=== PATIENT | female | born 1965 | race African-American/Black ===

== ENCOUNTER 2022-06-26 19:51 | Inpatient (IN) | payer OTHER ==
[~2022-06-26] VITALS: Ht 182.9 cm; Wt 104.8 kg
[~2022-06-26 19:51] MED LIST: TRIA1CAP35
[2022-06-26 20:50] LABS: BASOPHILS % 0.3 % (0.0-2.0); EOSINOPHILS % 0.3 % (0.0-5.0); HEMATOCRIT. 46.8 % (36.0-48.0); HEMOGLOBIN. 16.1 g/dL (12.0-16.0); LYMPHOCYTES % 7.9 % (20.0-50.0); MEAN CORPUSCULAR HEMOGLOBIN 29.8 pg (28.0-32.0); MEAN CORPUSCULAR VOLUME 86.8 fL (81.0-99.0); MEAN PLATELET VOLUME 6.9 fl (7.4-10.4); NEUTROPHILS % 86.5 % (40.0-76.0); PLATELET 507 x1000/uL (130-400); RED CELL DISTRIBUTION WIDTH 13.5 % (11.6-14.6)
[2022-06-26 21:05] LABS: CHLORIDE 98 mEq/L (98-107)
[2022-06-26 21:12] LABS: ETHANOL BLOOD < 10 mg/dL
[2022-06-26] MEDS ORDERED: CEFEPIME 1,000 MG in DEXTROSE 5% WATER 50 ML IV NR (22:00)
[2022-06-26] MEDS ORDERED: VANCOMYCIN 1G PREMIX 200 ML IV NR (22:00)
[2022-06-26] MEDS: DEXT 5%/LACTATED RINGERS 1,000 ML IV SCH (22:15)
[2022-06-26] MEDS ORDERED: ROCURONIUM BROMIDE 10MG/ML VIAL 5ML IV ONE (22:15)
[2022-06-26] MEDS ORDERED: DEXAMETHASONE 10 MG/ML VIAL IV ONE (22:15)
[2022-06-26] MEDS ORDERED: LEVETIRACETAM 500MG PREMIX 100 ML IV ONE ×2 (22:15)
[2022-06-26] MEDS ORDERED: NICARDIPINE 100 MG in SODIUM CHLORIDE 0.9% 60 ML IV PRN (22:15)
[2022-06-26] MEDS ORDERED: MANNITOL 12.5G (25%) VIAL 50ML IV ONE (22:15)
[2022-06-26] MEDS ORDERED: ETOMIDATE 2MG/ML 10ML VIAL IV ONE (22:15)
[2022-06-26] MEDS ORDERED: FENTANYL 2500MCG/250ML PMX 250 ML IV ONE (22:30)
[2022-06-26] MEDS ORDERED: MIDAZOLAM HCL 100 MG in DEXT 5% WATER 80 ML IV ONE (22:30)
[2022-06-26] MEDS ORDERED: FENTANYL 2500MCG/250ML PMX 250 ML IV NR (22:45)
[2022-06-26] MEDS ORDERED: MIDAZOLAM HCL 100 MG in DEXT 5% WATER 80 ML IV NR (22:45)
[2022-06-26 23:19] LABS: CREATINE KINASE 657 IU/L (26-192)
[2022-06-27] VITALS (57 sets, daily range): BP systolic 90–140; BP diastolic 53–103
[2022-06-27] LABS: BG BASE EXCESS -0.8 mmol/L (-2.0-2.0); BG CARBOXYHEMOGLOBIN 0.5 % (0.5-1.5); BG DEOXYHEMOGLOBIN 0.3 % (0.0-5.0); BG FRACTION INSPIRED OXYGEN 100; BG HCO3 ACT 22.3 mmol/L (22.0-26.0); BG METHEMOGLOBIN 0.5 % (0.0-1.5); BG OXYGEN SATURATION 99.7 % (92.0-98.5); BG OXYHEMOGLOBIN 98.7 % (94.0-97.0); BG PCO2 33.1 mmHg (35.0-45.0); BG PH 7.446 (7.350-7.450); BG PO2 504.7 mmHg (75.0-100.0); BG SAMPLE SITE LEFT RADIAL; BG TOTAL HEMOGLOBIN 16.8 g/dL (12.0-18.0); BG VENT MODE VENT - AC
[2022-06-27] MEDS ORDERED: LEVETIRACETAM 500MG PREMIX 100 ML IV NR (02:15)
[2022-06-27 03:05] LABS: CLARITY URINE CLEAR (CLEAR); COLOR URINE YELLOW (YELLOW); KETONES URINE NEGATIVE (NEGATIVE); LEUKOCYTE ESTERASE URINE NEGATIVE (NEGATIVE); NITRITE URINE NEGATIVE (NEGATIVE); OCCULT BLOOD URINE 3+ (NEGATIVE); PROTEIN URINE 4+ (NEGATIVE); SPECIFIC GRAVITY URINE 1.026 (1.005-1.030); UROBILINOGEN URINE 0.2 E.U./dL (0.2-1.0)
[2022-06-27] MEDS: DEXT 5%/LACTATED RINGERS 1,000 ML IV SCH (03:13)
[2022-06-27 03:22] LABS: *AMPHETAMINES SCREEN URINE NEGATIVE (NEGATIVE); *BARBITURATES SCREEN URINE NEGATIVE (NEGATIVE); *BENZODIAZEPINES SCREEN URINE NEGATIVE (NEGATIVE); *COCAINE SCREEN URINE NEGATIVE (NEGATIVE); CANNABINOID URINE SCREEN PRESUMTIVE POSITIVE (NEGATIVE); METHADONE URINE SCREEN NEGATIVE (NEGATIVE); OPIATES URINE SCREEN NEGATIVE (NEGATIVE); PHENCYCLIDINE URINE SCREEN NEGATIVE (NEGATIVE)
[2022-06-27] MEDS ORDERED: IPRATROPIUM/ALBUTEROL 0.5-3(2.5)MG/3ML NEB NEB PRN (04:15)
[2022-06-27] MEDS ORDERED: ONDANSETRON HCL 4MG/2ML INJ IV PRN (04:15)
[2022-06-27] MEDS ORDERED: ACETAMINOPHEN 650MG SUPP PR PRN (04:15)
[2022-06-27] MEDS ORDERED: NA PHOS,M-B/NA PHOS,DI-BA ENEMA 118ML PR PRN (04:15)
[2022-06-27] MEDS ORDERED: DOCUSATE SODIUM 100MG CAPSULE PO PRN (04:15)
[2022-06-27] MEDS ORDERED: POTASSIUM CHLORIDE INJ 40 MEQ in DEXT 5% WATER 250 ML IV ONE (05:00)
[2022-06-27] MEDS: DEXAMETHASONE 4MG/ML 1ML VIAL IV SCH ×5 (07:09→23:31)
[2022-06-27] MEDS: KCL 10MEQ/50ML PREMIX 50 ML IV NR ×4 (07:09→10:07)
[2022-06-27] MEDS: PANTOPRAZOLE SODIUM 40 MG/VIAL IV SCH (07:09)
[2022-06-27] MEDS ORDERED: SODIUM CHLORIDE 0.9% 1,000 ML IV SCH (07:54)
[2022-06-27] MEDS: VANCOMYCIN 1.25GM PMX (XELLIA) 250 ML IV SCH ×2 (08:37→20:16)
[2022-06-27] MEDS ORDERED: LEVETIRACETAM 500MG PREMIX 100 ML IV SCH (09:00)
[2022-06-27] MEDS ORDERED: VANCOMYCIN 1G PREMIX 200 ML IV SCH (09:00)
[2022-06-27] MEDS ORDERED: ENOXAPARIN 30MG/0.3ML SYR SUBCUT SCH (09:00)
[2022-06-27] MEDS ORDERED: CEFEPIME HCL 1000MG/VIAL INJ IM SCH (09:00)
[2022-06-27] MEDS: LEVETIRACETAM 500MG PREMIX 100 ML IV SCH ×2 (10:07→20:05)
[2022-06-27] MEDS: CEFEPIME 1,000 MG in DEXTROSE 5% WATER 50 ML IV SCH ×2 (11:29→20:16)
[2022-06-27] MEDS ORDERED: KCL 20MEQ/100ML PREMIX 100 ML IV NR (11:30)
[2022-06-27] MEDS ORDERED: KCL 20MEQ/100ML X 2 FOR TOTAL KCL 40MEQ/200ML IV SCH (11:30)
[2022-06-27] MEDS ORDERED: FENTANYL 2500MCG/250ML PMX 250 ML IV PRN (13:00)
[2022-06-27] MEDS ORDERED: MIDAZOLAM HCL 100 MG in SODIUM CHLORIDE 0.9% 80 ML IV PRN (14:00)
[2022-06-27 17:19] LABS: HEMATOCRIT. 45.8 % (36.0-48.0); HEMOGLOBIN. 15.8 g/dL (12.0-16.0); MEAN CORPUSCULAR HEMOGLOBIN 30.6 pg (28.0-32.0); MEAN CORPUSCULAR VOLUME 88.4 fL (81.0-99.0); MEAN PLATELET VOLUME 7.8 fl (7.4-10.4); PLATELET 482 x1000/uL (130-400); RED BLOOD CELL COUNT 5.18 mill/uL (4.2-5.4); RED CELL DISTRIBUTION WIDTH 13.7 % (11.6-14.6)
[2022-06-27 18:14] LABS: CHLORIDE 104 mEq/L (98-107)
[2022-06-27 18:15] LABS: BG BASE EXCESS -2.4 mmol/L (-2.0-2.0); BG CARBOXYHEMOGLOBIN 0.5 % (0.5-1.5); BG DEOXYHEMOGLOBIN 1.3 % (0.0-5.0); BG FRACTION INSPIRED OXYGEN 40; BG HCO3 ACT 21.2 mmol/L (22.0-26.0); BG METHEMOGLOBIN 0.3 % (0.0-1.5); BG OXYGEN SATURATION 98.7 % (92.0-98.5); BG OXYHEMOGLOBIN 97.9 % (94.0-97.0); BG PCO2 33.7 mmHg (35.0-45.0); BG PH 7.416 (7.350-7.450); BG PO2 142.9 mmHg (75.0-100.0); BG SAMPLE SITE RIGHT RADIAL; BG TOTAL HEMOGLOBIN 16.7 g/dL (12.0-18.0); BG VENT MODE VENT - CPAP
[2022-06-27 18:15] LABS: PLATELET ESTIMATE INCREASED
[2022-06-27 18:29] LABS: CREATINE KINASE 726 IU/L (26-192); HDL CHOLESTEROL 40 mg/dL (40-59); LDL CHOLESTEROL 152 mg/dL (5-100); PHOSPHORUS 3.8 mg/dL (2.5-4.9)
[2022-06-27 19:58] LABS: FOLIC ACID (FOLATE) SERUM 12.5 ng/mL (>5.38)
[2022-06-28] VITALS (53 sets, daily range): BP systolic 92–151; BP diastolic 38–96
[2022-06-28] MEDS: DEXAMETHASONE 4MG/ML 1ML VIAL IV SCH ×4 (05:21→23:24)
[2022-06-28 06:10] LABS: HEMATOCRIT. 44.5 % (36.0-48.0); HEMOGLOBIN. 15.2 g/dL (12.0-16.0); MEAN CORPUSCULAR HEMOGLOBIN 30.4 pg (28.0-32.0); MEAN CORPUSCULAR VOLUME 89.1 fL (81.0-99.0); MEAN PLATELET VOLUME 7.5 fl (7.4-10.4); PLATELET 449 x1000/uL (130-400); RED BLOOD CELL COUNT 4.99 mill/uL (4.2-5.4); RED CELL DISTRIBUTION WIDTH 13.7 % (11.6-14.6)
[2022-06-28] MEDS: PANTOPRAZOLE SODIUM 40 MG/VIAL IV SCH (08:20)
[2022-06-28] MEDS: VANCOMYCIN 1.25GM PMX (XELLIA) 250 ML IV SCH ×2 (08:20→20:07)
[2022-06-28] MEDS: LEVETIRACETAM 500MG PREMIX 100 ML IV SCH ×2 (08:20→20:07)
[2022-06-28] MEDS: CEFEPIME 1,000 MG in DEXTROSE 5% WATER 50 ML IV SCH ×2 (08:20→20:07)
[2022-06-28 08:54] LABS: PLATELET ESTIMATE INCREASED
[2022-06-28 09:14] LABS: CHLORIDE 105 mEq/L (98-107)
[2022-06-29] VITALS (59 sets, daily range): BP systolic 98–153; BP diastolic 58–121
[2022-06-29 05:52] LABS: HEMATOCRIT 42.7 % (36.0-48.0); HEMOGLOBIN 14.8 g/dL (12.0-16.0); MEAN CORPUSCULAR HEMOGLOBIN 30.9 pg (28.0-32.0); PLATELET 421 x1000/uL (130-400); RED BLOOD CELL COUNT 4.79 mill/uL (4.2-5.4); RED CELL DISTRIBUTION WIDTH 13.3 % (11.6-14.6)
[2022-06-29 05:57] LABS: CHLORIDE 107 mEq/L (98-107)
[2022-06-29] MEDS ORDERED: THROMBIN (BOVINE) 5000 UNITS/VIAL TOP ONE (06:06)
[2022-06-29] MEDS ORDERED: LIDOCAINE HCL 1%/EPI 1:200,000 30 ML VIAL ONE (06:06)
[2022-06-29] MEDS ORDERED: GENTAMICIN SULF 40MG/ML 2ML VIAL ONE (06:07)
[2022-06-29] MEDS ORDERED: BACITRACIN 15GM TUBE TOP ONE (06:11)
[2022-06-29] MEDS: DEXAMETHASONE 4MG/ML 1ML VIAL IV SCH ×3 (06:20→17:02)
[2022-06-29] MEDS ORDERED: DEXAMETHASONE 4MG/ML 1ML VIAL ONE ×2 (06:56→07:38)
[2022-06-29] MEDS ORDERED: NEOSTIGMINE METHYLSULFATE 1MG/ML 10 ML VIAL ONE (06:56)
[2022-06-29] MEDS ORDERED: SUCCINYLCHOLINE CHLORIDE 200MG/10ML IV ONE (06:56)
[2022-06-29] MEDS ORDERED: ROCURONIUM BROMIDE 10MG/ML VIAL 5ML IV ONE ×2 (06:56→07:54)
[2022-06-29] MEDS ORDERED: ONDANSETRON HCL 4MG/2ML INJ ONE (06:56)
[2022-06-29] MEDS ORDERED: CEFAZOLIN SODIUM 1000MG/VIAL ONE (06:56)
[2022-06-29] MEDS ORDERED: GLYCOPYRROLATE 0.2 MG/ML 2ML VIAL ONE ×2 (06:57)
[2022-06-29] MEDS ORDERED: PROPOFOL 200MG/20ML VIAL IV ONE (06:57)
[2022-06-29] MEDS ORDERED: FENTANYL CITRATE/PF 50MCG/ML 2ML VIAL ONE (06:58)
[2022-06-29] MEDS ORDERED: MIDAZOLAM HCL 2 MG/2 ML VIAL ONE (06:58)
[2022-06-29] MEDS: CLONIDINE 0.1MG TABLET PO PRN (07:02)
[2022-06-29] MEDS ORDERED: FUROSEMIDE 40MG/4ML VIAL ONE (07:38)
[2022-06-29] MEDS ORDERED: MANNITOL 20% 500 ML IV ONE (07:38)
[2022-06-29] MEDS ORDERED: LEVETIRACETAM 500MG PREMIX 100 ML IV ONE (07:39)
[2022-06-29] MEDS ORDERED: PHENYTOIN SODIUM 250MG/5ML VIAL IV ONE (07:40)
[2022-06-29] MEDS ORDERED: HYDROMORPHONE HCL/PF 2MG/ML CPJ ONE (08:36)
[2022-06-29] MEDS: LEVETIRACETAM 500MG PREMIX 100 ML IV SCH ×2 (09:00→20:34)
[2022-06-29] MEDS: VANCOMYCIN 1.25GM PMX (XELLIA) 250 ML IV SCH ×2 (09:00→21:49)
[2022-06-29] MEDS: CEFEPIME 1,000 MG in DEXTROSE 5% WATER 50 ML IV SCH ×2 (09:00→21:49)
[2022-06-29] MEDS ORDERED: NALOXONE HCL 0.4MG/ML VIAL IV PRN (10:45)
[2022-06-29] MEDS: PANTOPRAZOLE SODIUM 40 MG/VIAL IV SCH (11:12)
[2022-06-29] MEDS: DEXT 5%/LACTATED RINGERS 1,000 ML IV SCH (11:13)
[2022-06-29] MEDS: NICARDIPINE 100 MG in SODIUM CHLORIDE 0.9% 60 ML IV PRN ×2 (11:14→17:02)
[2022-06-29] MEDS: MORPHINE SULFATE 4 MG/ML CPJ (NOT FOR IM USE) IV PRN ×3 (11:14→22:41)
[2022-06-29] MEDS ORDERED: DEXAMETHASONE 4MG/ML 1ML VIAL IV SCH (12:00)
[2022-06-29] MEDS: CEFAZOLIN 1000MG PREMIX 50 ML IV SCH ×2 (13:04→21:13)
[2022-06-29] MEDS: PHENYTOIN SODIUM 100MG/2ML VIAL IV SCH ×2 (13:04→22:33)
[2022-06-29] MEDS ORDERED: CEFAZOLIN SODIUM 1000MG/VIAL IV SCH (14:00)
[2022-06-30] VITALS (97 sets, daily range): BP systolic 96–197; BP diastolic 48–193
[2022-06-30] MEDS: NICARDIPINE 100 MG in SODIUM CHLORIDE 0.9% 60 ML IV PRN ×3 (00:02→22:04)
[2022-06-30] MEDS: DEXT 5%/LACTATED RINGERS 1,000 ML IV SCH ×2 (02:42→22:01)
[2022-06-30] MEDS: CEFAZOLIN 1000MG PREMIX 50 ML IV SCH (05:57)
[2022-06-30] MEDS: PHENYTOIN SODIUM 100MG/2ML VIAL IV SCH (05:58)
[2022-06-30] MEDS: DEXAMETHASONE 4MG/ML 1ML VIAL IV SCH ×5 (05:58→23:30)
[2022-06-30] MEDS: MORPHINE SULFATE 4 MG/ML CPJ (NOT FOR IM USE) IV PRN (05:58)
[2022-06-30] MEDS: MORPHINE SULFATE 2 MG/ML CPJ (NOT FOR IM USE) IV PRN ×5 (09:46→23:31)
[2022-06-30] MEDS: CLONIDINE 0.1MG TABLET PO PRN ×2 (09:54→16:12)
[2022-06-30] MEDS: LEVETIRACETAM 500MG PREMIX 100 ML IV SCH ×2 (09:56→21:59)
[2022-06-30] MEDS: PANTOPRAZOLE SODIUM 40 MG/VIAL IV SCH (09:57)
[2022-06-30] MEDS: CEFEPIME 1,000 MG in DEXTROSE 5% WATER 50 ML IV SCH ×2 (10:59→21:42)
[2022-06-30] MEDS: VANCOMYCIN 1.25GM PMX (XELLIA) 250 ML IV SCH ×2 (11:00→21:42)
[2022-06-30] MEDS ORDERED: GUAIFENESIN-DM 200MG-20MG/10ML UDC PO PRN (12:15)
[2022-06-30] MEDS ORDERED: PHENYTOIN SODIUM EXTENDED 100MG CAPSULE PO NR (15:15)
[2022-06-30] MEDS ORDERED: LISINOPRIL 5MG TABLET PO NR (16:45)
[2022-06-30] MEDS ORDERED: AMLODIPINE 5MG TABLET PO SCH (21:00)
[2022-06-30] MEDS: PHENYTOIN SODIUM EXTENDED 100MG CAPSULE PO SCH (21:59)
[2022-06-30] MEDS ORDERED: PHENYTOIN SODIUM EXTENDED 100MG CAPSULE PO SCH (22:00)
[2022-07-01] VITALS (83 sets, daily range): BP systolic 106–184; BP diastolic 43–88
[2022-07-01] MEDS: DEXAMETHASONE 4MG/ML 1ML VIAL IV SCH ×3 (05:16→17:49)
[2022-07-01] MEDS: NICARDIPINE 100 MG in SODIUM CHLORIDE 0.9% 60 ML IV PRN (05:16)
[2022-07-01] MEDS: PHENYTOIN SODIUM EXTENDED 100MG CAPSULE PO SCH ×3 (05:17→21:56)
[2022-07-01] MEDS: LEVETIRACETAM 500MG PREMIX 100 ML IV SCH ×2 (08:00→21:19)
[2022-07-01] MEDS: CEFEPIME 1,000 MG in DEXTROSE 5% WATER 50 ML IV SCH ×2 (10:00→20:39)
[2022-07-01] MEDS: LISINOPRIL 10MG TABLET PO SCH ×2 (11:22→20:39)
[2022-07-01] MEDS: PANTOPRAZOLE SODIUM 40 MG/VIAL IV SCH (11:22)
[2022-07-01] MEDS: DEXT 5%/LACTATED RINGERS 1,000 ML IV SCH (11:23)
[2022-07-01] MEDS: VANCOMYCIN 1.25GM PMX (XELLIA) 250 ML IV SCH ×2 (12:12→21:56)
[2022-07-01 17:10] LABS: HEMATOCRIT. 35.6 % (36.0-48.0); HEMOGLOBIN. 12.1 g/dL (12.0-16.0); MEAN CORPUSCULAR HEMOGLOBIN 30.2 pg (28.0-32.0); MEAN CORPUSCULAR VOLUME 89.1 fL (81.0-99.0); MEAN PLATELET VOLUME 7.9 fl (7.4-10.4); PLATELET 377 x1000/uL (130-400); RED CELL DISTRIBUTION WIDTH 13.2 % (11.6-14.6)
[2022-07-01 17:32] LABS: CHLORIDE 100 mEq/L (98-107)
[2022-07-01] MEDS: CLONIDINE 0.1MG TABLET PO PRN (17:49)
[2022-07-01] MEDS ORDERED: GADOTERATE MEGLUMINE 5 MMOL/10 ML VIAL IV ONE (18:02)
[2022-07-01] MEDS: MORPHINE SULFATE 2 MG/ML CPJ (NOT FOR IM USE) IV PRN ×2 (18:05→20:41)
[2022-07-01 23:04] LABS: PLATELET ESTIMATE NORMAL
[2022-07-02] VITALS (89 sets, daily range): BP systolic 104–164; BP diastolic 35–92
[2022-07-02] MEDS: DEXAMETHASONE 4MG/ML 1ML VIAL IV SCH ×3 (00:08→11:28)
[2022-07-02] MEDS: NICARDIPINE 100 MG in SODIUM CHLORIDE 0.9% 60 ML IV PRN ×2 (00:08→09:05)
[2022-07-02] MEDS: MORPHINE SULFATE 2 MG/ML CPJ (NOT FOR IM USE) IV PRN (00:19)
[2022-07-02] MEDS: MORPHINE SULFATE 4 MG/ML CPJ (NOT FOR IM USE) IV PRN (04:44)
[2022-07-02] MEDS: PHENYTOIN SODIUM EXTENDED 100MG CAPSULE PO SCH ×3 (05:53→22:10)
[2022-07-02] MEDS: PANTOPRAZOLE SODIUM 40 MG/VIAL IV SCH (08:22)
[2022-07-02] MEDS: LISINOPRIL 10MG TABLET PO SCH ×2 (08:23→20:45)
[2022-07-02] MEDS: VANCOMYCIN 1.25GM PMX (XELLIA) 250 ML IV SCH ×2 (08:24→20:45)
[2022-07-02] MEDS: CEFEPIME 1,000 MG in DEXTROSE 5% WATER 50 ML IV SCH ×2 (08:24→20:44)
[2022-07-02] MEDS: LEVETIRACETAM 500MG PREMIX 100 ML IV SCH ×2 (08:25→20:44)
[2022-07-02] MEDS ORDERED: POLYETHYLENE GLYCOL 3350 (17GM) 1 DOSE PACK PO PRN (16:00)
[2022-07-02] MEDS: HYDRALAZINE HCL 25MG TABLET PO SCH (22:11)
[2022-07-02] MEDS: METOPROLOL TARTRATE 25MG TABLET PO SCH (22:12)
[2022-07-03] VITALS (87 sets, daily range): BP systolic 92–168; BP diastolic 49–98
[2022-07-03] MEDS: MORPHINE SULFATE 2 MG/ML CPJ (NOT FOR IM USE) IV PRN ×2 (00:17→06:28)
[2022-07-03] MEDS: NICARDIPINE 100 MG in SODIUM CHLORIDE 0.9% 60 ML IV PRN (05:27)
[2022-07-03] MEDS: PHENYTOIN SODIUM EXTENDED 100MG CAPSULE PO SCH ×3 (05:27→22:23)
[2022-07-03] MEDS: HYDRALAZINE HCL 25MG TABLET PO SCH ×3 (05:28→22:22)
[2022-07-03 05:35] LABS: BASOPHILS % 0.1 % (0.0-2.0); EOSINOPHILS % 0.4 % (0.0-5.0); HEMATOCRIT. 34.5 % (36.0-48.0); HEMOGLOBIN. 11.9 g/dL (12.0-16.0); LYMPHOCYTES % 17.6 % (20.0-50.0); MEAN CORPUSCULAR HEMOGLOBIN 30.6 pg (28.0-32.0); MEAN CORPUSCULAR VOLUME 88.7 fL (81.0-99.0); MEAN PLATELET VOLUME 7.5 fl (7.4-10.4); NEUTROPHILS % 74.9 % (40.0-76.0); PLATELET 378 x1000/uL (130-400); RED BLOOD CELL COUNT 3.89 mill/uL (4.2-5.4); RED CELL DISTRIBUTION WIDTH 13.4 % (11.6-14.6)
[2022-07-03] MEDS: DEXAMETHASONE 4MG TABLET PO SCH (08:35)
[2022-07-03] MEDS: METOPROLOL TARTRATE 25MG TABLET PO SCH ×2 (08:35→21:27)
[2022-07-03] MEDS: LEVETIRACETAM 500MG PREMIX 100 ML IV SCH (08:36)
[2022-07-03] MEDS: LISINOPRIL 10MG TABLET PO SCH ×2 (08:36→21:28)
[2022-07-03] MEDS: VANCOMYCIN 1.25GM PMX (XELLIA) 250 ML IV SCH ×2 (08:36→21:26)
[2022-07-03] MEDS: CEFEPIME 1,000 MG in DEXTROSE 5% WATER 50 ML IV SCH ×2 (08:36→21:26)
[2022-07-03] MEDS: PANTOPRAZOLE SODIUM 40 MG/VIAL IV SCH (08:36)
[2022-07-03] MEDS: CLONIDINE 0.1MG TABLET PO PRN (10:53)
[2022-07-03] MEDS: LEVETIRACETAM 500MG TABLET PO SCH (21:27)
[2022-07-04] VITALS (51 sets, daily range): BP systolic 75–168; BP diastolic 37–82
[2022-07-04] MEDS: CLONIDINE 0.1MG TABLET PO PRN (01:00)
[2022-07-04] MEDS: MORPHINE SULFATE 2 MG/ML CPJ (NOT FOR IM USE) IV PRN ×2 (01:01→09:31)
[2022-07-04] MEDS: HYDROCODONE/ACETAMINOPHEN 5/325MG TABLET PO PRN ×2 (02:25→23:08)
[2022-07-04 05:48] LABS: CHLORIDE 103 mEq/L (98-107)
[2022-07-04] MEDS: HYDRALAZINE HCL 25MG TABLET PO SCH ×3 (07:01→21:49)
[2022-07-04] MEDS: PHENYTOIN SODIUM EXTENDED 100MG CAPSULE PO SCH (07:02)
[2022-07-04] MEDS: CEFEPIME 1,000 MG in DEXTROSE 5% WATER 50 ML IV SCH ×2 (08:16→22:28)
[2022-07-04] MEDS: LEVETIRACETAM 500MG TABLET PO SCH ×2 (08:17→21:50)
[2022-07-04] MEDS: DEXAMETHASONE 4MG TABLET PO SCH (08:17)
[2022-07-04] MEDS: PANTOPRAZOLE SODIUM 40 MG/VIAL IV SCH (08:17)
[2022-07-04] MEDS: METOPROLOL TARTRATE 25MG TABLET PO SCH ×2 (08:18→21:49)
[2022-07-04] MEDS: LISINOPRIL 10MG TABLET PO SCH ×2 (08:18→21:50)
[2022-07-04] MEDS: VANCOMYCIN 1.25GM PMX (XELLIA) 250 ML IV SCH ×2 (08:18→22:28)
[2022-07-04 17:20] LABS: BASOPHILS % 0.3 % (0.0-2.0); EOSINOPHILS % 1.4 % (0.0-5.0); HEMATOCRIT. 35.4 % (36.0-48.0); LYMPHOCYTES % 13.6 % (20.0-50.0); MEAN CORPUSCULAR HEMOGLOBIN 30.4 pg (28.0-32.0); MEAN CORPUSCULAR VOLUME 89.4 fL (81.0-99.0); MEAN PLATELET VOLUME 7.6 fl (7.4-10.4); MONOCYTES % 6.6 % (2.0-8.0); NEUTROPHILS % 78.1 % (40.0-76.0); PLATELET 396 x1000/uL (130-400); RED BLOOD CELL COUNT 3.96 mill/uL (4.2-5.4); RED CELL DISTRIBUTION WIDTH 13.1 % (11.6-14.6)
[2022-07-04 20:34] LABS: CHLORIDE 103 mEq/L (98-107)
[2022-07-05] VITALS (14 sets, daily range): BP systolic 120–191; BP diastolic 48–89
[2022-07-05] MEDS: HYDRALAZINE HCL 25MG TABLET PO SCH ×2 (05:28→14:46)
[2022-07-05 07:00] LABS: BASOPHILS % 0.2 % (0.0-2.0); EOSINOPHILS % 1.8 % (0.0-5.0); HEMATOCRIT. 34.8 % (36.0-48.0); HEMOGLOBIN. 11.9 g/dL (12.0-16.0); LYMPHOCYTES % 13.3 % (20.0-50.0); MEAN CORPUSCULAR HEMOGLOBIN 30.3 pg (28.0-32.0); MEAN CORPUSCULAR VOLUME 88.9 fL (81.0-99.0); MEAN PLATELET VOLUME 7.9 fl (7.4-10.4); MONOCYTES % 7.4 % (2.0-8.0); NEUTROPHILS % 77.3 % (40.0-76.0); PLATELET 384 x1000/uL (130-400); RED BLOOD CELL COUNT 3.92 mill/uL (4.2-5.4); RED CELL DISTRIBUTION WIDTH 13.3 % (11.6-14.6)
[2022-07-05] MEDS: LISINOPRIL 10MG TABLET PO SCH (09:00)
[2022-07-05] MEDS ORDERED: METO25TA6 PO (10:21)
[2022-07-05] MEDS ORDERED: HYDR-4134 PO (10:21)
[2022-07-05] MEDS: VANCOMYCIN 1.25GM PMX (XELLIA) 250 ML IV SCH (10:21)
[2022-07-05] MEDS: LEVETIRACETAM 500MG TABLET PO SCH (10:22)
[2022-07-05] MEDS: PANTOPRAZOLE SODIUM 40 MG/VIAL IV SCH (10:22)
[2022-07-05] MEDS: CEFEPIME 1,000 MG in DEXTROSE 5% WATER 50 ML IV SCH (10:24)
[2022-07-05] MEDS: METOPROLOL TARTRATE 25MG TABLET PO SCH (10:24)
[2022-07-05] MEDS ORDERED: MED4 GT (10:25)
[2022-07-05] MEDS ORDERED: KEPP500 PO (10:25)
== END 2022-07-05 15:50 | disposition home health service (06) | DRG 21 ==
LOC: ER 19:51 → MICUSO 06-27 00:05 → EDBEDREQ 06-27 00:20 → MICUSO 06-27 07:03 → 5EST 07-04 13:25
PROVIDERS: ADMIT Internal Medicine Nephrology; ATTEND Internal Medicine Nephrology
PROC: 5A1945Z Respiratory Ventilation, 24-96 Consecutive Hours (ICD-10-PCS; principal; 2022-06-27)
PROC: 0BH17EZ Insertion of Endotracheal Airway into Trachea, Via Natural or Artificial Opening (ICD-10-PCS; 2022-06-27)
PROC: 00B10ZZ Excision of Cerebral Meninges, Open Approach (ICD-10-PCS; 2022-06-29)
PROC: 00U207Z Supplement Dura Mater with Autologous Tissue Substitute, Open Approach (ICD-10-PCS; 2022-06-29)
DX: I63.81 Other cerebral infarction due to occlusion or stenosis of small artery (principal); J96.00 Acute respiratory failure, unspecified whether with hypoxia or hypercapnia; G93.6 Cerebral edema; G92.8 Other toxic encephalopathy; E88.09 Other disorders of plasma-protein metabolism, not elsewhere classified; D63.8 Anemia in other chronic diseases classified elsewhere; E87.1 Hypo-osmolality and hyponatremia; M62.82 Rhabdomyolysis; D32.0 Benign neoplasm of cerebral meninges; D75.1 Secondary polycythemia; Z20.822 Contact with and (suspected) exposure to COVID-19; E87.6 Hypokalemia; D75.839 Thrombocytosis, unspecified; I16.0 Hypertensive urgency; E78.5 Hyperlipidemia, unspecified; E66.9 Obesity, unspecified; I10 Essential (primary) hypertension; M19.90 Unspecified osteoarthritis, unspecified site; R73.03 Prediabetes; G40.909 Epilepsy, unspecified, not intractable, without status epilepticus; F12.10 Cannabis abuse, uncomplicated; F17.210 Nicotine dependence, cigarettes, uncomplicated; Z68.31 Body mass index [BMI] 31.0-31.9, adult; Y92.009 Unspecified place in unspecified non-institutional (private) residence as the place of occurrence of the external cause
CPT/HCPCS: 36415; 36600; 70553; 71045; 72170; 80048; 80053; 80061; 80185; 80202; 80305; 80307; 80320; 80329; 81003; 82140; 82375; 82550; 82607; 82746; 82805; 83036; 83605; 83735; 84100; 84145; 84439; 84443; 84484; 85025; 85027; 87426; 93005; 93970; 97116; 97162; 97164; 97166; 97530; 97535; 99291; A6261; A9577; C9113; J0330; J0690; J0692; J1100; J1165; J1170; J1580; J1650; J1940; J1953; J2150; J2250; J2270; J2405; J2704; J2710; J3010; J3370; J3480; J3490; J7050; J7060; J7120; J7121; J8540; C1713; G0480